=== PATIENT | female | born 1985 | race Caucasian/White ===

== ENCOUNTER 2017-11-21 14:20 | Emergency (ER) | payer OTHER ==
[2017-11-21 15:07] VITALS: BP 124/75; PULSE 85; RESP 20; TEMP 98
[2017-11-21] MEDS ORDERED: LIDOCAINE 1% INJ 10MG/ML (20 ML MDV) SQ ONE (15:12)
--- NOTE | 2017-11-21 16:15 | ED ---
General Adult HPI - General Chief complaint: Skin/Abscess/Foreign Body Stated complaint: left thumb infection Time Seen by Provider: 11/21/17 15:07 Source: patient, RN notes reviewed Mode of arrival: ambulatory Limitations: no limitations - History of Present Illness Initial comments: 32-year-old female presents to the emergency department for a chief complaint of paronychia times one week. Patient states it is painful. Patient is not sure how she acquired it. Patient denies fever or chills at home. Patient states helps to elevate it. Patient denies any spreading or streaking redness up the finger. Patient denies any injuries to the finger. Patient has no other complaints at this time including shortness of breath, chest pain, abdominal pain, nausea or vomiting, headache, or visual changes. - Related Data Previous Rx's Medication Instructions Recorded Sulfamethox-Tmp 800-160Mg [Bactrim 1 tab PO Q12HR #20 tab 11/21/17 DS 800-160 mg] Allergies Allergy/AdvReac Type Severity Reaction Status Date / Time codeine Allergy Unknown Verified 11/21/17 15:07 Review of Systems ROS Statement: Those systems with pertinent positive or pertinent negative responses have been documented in the HPI. ROS Other: All systems not noted in ROS Statement are negative. Past Medical History Past Medical History: No Reported History History of Any Multi-Drug Resistant Organisms: None Reported Past Surgical History: Orthopedic Surgery, Tubal Ligation Past Psychological History: Anxiety, Depression, Panic Disorder Smoking Status: Current every day smoker Past Alcohol Use History: None Reported Past Drug Use History: None Reported General Exam Limitations: no limitations General appearance: alert, in no apparent distress Head exam: Present: atraumatic, normocephalic, normal inspection Eye exam: Present: normal appearance ENT exam: Present: normal exam, mucous membranes moist Neck exam: Present: normal inspection, full ROM. Absent: tenderness, meningismus, lymphadenopathy Respiratory exam: Present: normal lung sounds bilaterally. Absent: respiratory distress, wheezes, rales, rhonchi, stridor Cardiovascular Exam: Present: regular rate, normal rhythm, normal heart sounds. Absent: systolic murmur, diastolic murmur, rubs, gallop, clicks Extremities exam: Present: full ROM (Full range of motion of left thumb), tenderness (Patient has tenderness to the left thumb around the site of the medial. Knee.), normal capillary refill, other (Refill less than 2 seconds in radial pulse 2+ and left upper extremity. Patient has a perineal tear of the medial nailfold left thumb. No spreading redness, no streaking redness up the thumb.) Course Vital Signs 11/21/17 15:04 Temperature 98.0 F Pulse Rate 85 Respiratory 20 Rate Blood Pressure 124/75 O2 Sat by Pulse 100 Oximetry Procedures - Procedures Initial comment: Consent: Verbal consent obtained. Risks and benefits: risks, benefits and alternatives were discussed Type: abscess Location details: Medial nailfold left thumb Anesthesia: Digital block Local anesthetic: lidocaine 1% Anesthetic total: 3 ml Scalpel size: 11 blade using sterile technique Incision type: single straight Complexity: simple Drainage: purulent Drainage amount: moderate Patient tolerance: Patient tolerated the procedure well with no immediate complications Medical Decision Making - Medical Decision Making 32-year-old female presents to the emergency department for a chief complaint of perineal Janny hour along the medial nail fold of the left thumb. Patient has full range of motion of the thumb and neurovascular intact. No signs of cellulitic changes or streaking redness up the finger. No fevers or chills at home or in the emergency department. Wound was cleaned with iodine and 11 blade was used to drain the paronychia. Moderate amount of purulent drainage was obtained. It was cultured. Patient will be sent home with Bactrim. She will monitor for spreading redness or streaking redness or fever and return if these occur. She will follow up with primary care in 1-2 days. She will return to the ER if she has any worsening symptoms which she is aware of. Disposition Clinical Impression: Paronychia Disposition: HOME SELF-CARE Condition: Good Instructions: Paronychia (ED) Additional Instructions: Please take antibiotic as directed. Please keep the area clean and apply antibiotic ointment. You may keep it covered for a day or 2. Return to the emergency department if you have spreading redness or streaking redness up the finger or develop fever. Otherwise follow-up with primary care in 1-2 days. Prescriptions: Sulfamethox-Tmp 800-160Mg [Bactrim DS 800-160 mg] 1 tab PO Q12HR #20 tab Is patient prescribed a controlled substance at d/c from ED?: No Referrals: Robi Lazo MD [STAFF PHYSICIAN] - 1-2 days Time of Disposition: 16:14
== END 2017-11-21 16:25 | disposition home or self-care (01) ==
LOC: EC 14:20
DX: L03.012 Cellulitis of left finger (principal); F17.200 Nicotine dependence, unspecified, uncomplicated; Z88.5 Allergy status to narcotic agent
CPT/HCPCS: 87070; 87205; 99283; 10060; J2001